=== PATIENT | female | born 1995 | race Caucasian/White ===

== ENCOUNTER 2019-06-17 16:02 | Inpatient (IN) ==
[2019-06-17] MEDS ORDERED: OXYTOCIN/DEXTROSE 5%-WATER 30 UNITS/500 ML BAG IV ONE ×2 (16:08→19:03)
[2019-06-17] MEDS ORDERED: RINGER'S SOLUTION,LACTATED 1,000 ML IV ONE (16:08)
[2019-06-17 16:24] LABS: Hematocrit 40.1 % (37.0-47.0); Hemoglobin 13.6 gm/dL (12.5-16.0); Mean Corpuscular Hemoglobin 31.6 pg (27-31); Mean Corpuscular Hgb Conc 33.9 g/dl (32-36); Mean Platelet Volume 9.4 fl (8-12.5); Neutrophil # 8.3 K/mm3 (1.3-6.0); Neutrophil % 67.3 % (42-75.0); Platelet Count 295 K/mm3 (150-450); Red Blood Count 4.31 M/mm3 (4.2-5.4); Red Cell Distribution Width 13.6 % (11.5-14.0); White Blood Count 12.4 K/mm3 (4.0-10.5)
[2019-06-17 16:34] LABS: Albumin * 2.9 gm/dl (3.4-5.0); Anion Gap 12.5 mmol/L (6.8-13.8); BUN/Creatinine Ratio 10.8 (9.0-21.6); Bilirubin, Total 0.2 mg/dL (0.0-1.1); Calcium * 9.4 mg/dL (7.9-10.9); Carbon Dioxide 24.6 mmol/L (24-32.6); Potassium 4.1 mmol/L (3.4-4.6)
[2019-06-17] MEDS: PENICILLIN G POTASSIUM 5 MILLIONUNT in DEXTROSE 5 % IN WATER 100 ML IV ONE ×2 (17:00)
--- NOTE | 2019-06-17 17:34 | HP ---
Chief Complaint - Chief Complaint Date of Service: 06/17/19 Time of Service: 17:20 Chief Complaint: IOL for GHTN History of Present Illness: 23 yo at 39 5/7 weeks presents to L&D from office for induction of labor due to gestational hypertensiion. This complicated by anemia, GHTN, and smoking in early part of . Rh positive Rubella immune GBS positive Medical History (Updated 11/16/18 @ 14:09 by Giovani Bryan DO) Tobacco abuse (Chronic) Blighted ovum Onset Date: ~03/2018 Chlamydia Onset Date: 04/07/18 Tx'd Surgical History: Surgical History (Updated 11/16/18 @ 13:11 by Jaleesa Anthony RN) No pertinent past surgical history Family History: Family History (Updated 11/16/18 @ 13:11 by Jaleesa Anthony RN) Grandmother Colon cancer Maternal Mother Alive and well Father Alive and well Sister Epilepsy Social History: (Last Reviewed 06/17/19 @ 17:26 by Giovani Bryan DO) Social History: adopted: No Marital status: Single household members: family current occupational status: employed current occupation: [employer] Highest education level completed: high school graduate Sexually Active: Yes Service: No Tobacco: Smoking Status: Current every day smoker tobacco type: cigarettes Smoking cigarettes per day: 10.0 Smoking packs per day: 0.5 Years smoked: 6 Smoking pack-years: 3.00 Alcohol: alcohol intake: current alcohol intake frequency: a few times a week details: none since +UPT Substance Use: substance use type: marijuana Dietary Habits: caffeine: Yes caffeine comment: 1-2/day Type: carbonated beverages, coffee daily servings of milk/calcium: 0-1 Exercise: Physical activity type: none frequency: does not exercise Poly/Restorationist: agree to transfusion: Yes Personal Safety: do you feel safe at home: Yes victim of physical abuse: No victim of emotional abuse: No victim of sexual abuse: No Review Of Systems (GEN) - Review of Systems Generalized/Overall Review: Present: No Symptoms Reported EENTM: Present: Other - visual symptoms yesterday - none today. Respiratory: Present: No Symptoms Reported Cardiac: Present: No Symptoms Reported Abdominal: Present: No Symptoms Reported Genitourinary: Present: No Symptoms Reported Musculoskeletal: Present: No Symptoms Reported Neurological: Present: Headache - past couple days, none today. Skin: Present: No Symptoms Reported Endocrine: Present: No Symptoms Reported Allergies/Adverse Reactions: Allergies Allergy/AdvReac Type Severity Reaction Status Date / Time No Known Allergies Allergy Verified 06/17/19 16:31 Home Medications: HOME MEDICATIONS vitamin,calcium,uxaspcvo-ngcm-sxylh acid tablet 1 tab PO DAILY 11/16/18 [Last Taken Unknown] calcium carbonate 200 mg calcium (500 mg) chewable tablet 400 mg PO .PRN tab 06/03/19 [Last Taken Unknown] Exam - Exam Vital Signs: Vital Signs - Last Taken Temp 36.6 C 06/17/19 16:23 Pulse 77 06/17/19 16:23 Resp 18 06/17/19 16:23 BP 141/82 H 06/17/19 16:23 Pulse Ox 100 06/17/19 16:23 Constitutional: Present: Alert, Oriented x3, Cooperative, No distress ENT Exam: Present: hearing grossly normal Neck: Present: trachea midline. Absent: thyromegaly Breasts: Present: Exam deferred Respiratory: Present: lungs clear, no respiratory distress Cardiovascular/Chest: Present: normal peripheral pulses, regular rate, rhythm, no murmur Abdomen: Present: soft, nontender, no rebound tenderness, other - gravid /Rectal: Present: Other - cervix 2/50/-1 Extremity: Present: no pedal edema, no calf tenderness, lower extremity edema Neurologic: Present: alert, normal mood/affect, oriented x 3, other - DTR 2/4 Appearance: Present: appropriate appearance, appropriate insight Eye contact: Present: cooperative, good eye contact Thoughts: Present: normal thought pattern Diagnostic Studies: Abnormal Lab Results 06/17/19 06/17/19 Range/Units 16:20 16:20 WBC 12.4 H (4.0-10.5) K/mm3 MCH 31.6 H (27-31) pg Immature Gran % (Auto) 1.00 H (0.001-0.429) % Immature Gran # (Auto) 0.12 H (0.000-0.0310) K/mm3 Monocytes % 9.5 H (0.0-9) % Neutrophils # 8.3 H (1.3-6.0) K/mm3 Monocytes # 1.2 H (0.0-1.0) k/mm3 Alkaline Phosphatase 229 H (50-170) U/L Albumin 2.9 L (3.4-5.0) gm/dl Laboratory Results WBC 12.4 K/mm3 (4.0-10.5) H 06/17/19 16:20 RBC 4.31 M/mm3 (4.2-5.4) 06/17/19 16:20 Hgb 13.6 gm/dL (12.5-16.0) 06/17/19 16:20 Hct 40.1 % (37.0-47.0) 06/17/19 16:20 MCV 93.0 fl (78-100) 06/17/19 16:20 MCH 31.6 pg (27-31) H 06/17/19 16:20 MCHC 33.9 g/dl (32-36) 06/17/19 16:20 RDW 13.6 % (11.5-14.0) 06/17/19 16:20 Plt Count 295 K/mm3 (150-450) 06/17/19 16:20 MPV 9.4 fl (8-12.5) 06/17/19 16:20 Immature Gran % (Auto) 1.00 % (0.001-0.429) H 06/17/19 16:20 Immature Gran # (Auto) 0.12 K/mm3 (0.000-0.0310) H 06/17/19 16:20 67.3 % (42-75.0) 06/17/19 16:20 20.6 % (20-51) 06/17/19 16:20 9.5 % (0.0-9) H 06/17/19 16:20 1.3 % (0.0-3.0) 06/17/19 16:20 0.3 % (0.0-1.0) 06/17/19 16:20 Nucleated RBC % 0.0 k/mm3 (0-1) 06/17/19 16:20 8.3 K/mm3 (1.3-6.0) H 06/17/19 16:20 2.55 k/mm3 (1.5-3.5) 06/17/19 16:20 1.2 k/mm3 (0.0-1.0) H 06/17/19 16:20 0.2 k/mm3 (0.0-0.7) 06/17/19 16:20 Absolute Basophils 0.0 k/mm3 (0.0-0.1) 06/17/19 16:20 Sodium 135 mmol/L (132-142) 06/17/19 16:20 135 mmol/L (130-142) 06/17/19 16:20 Potassium 4.1 mmol/L (3.4-4.6) 06/17/19 16:20 Chloride 102 mmol/L (97-106) 06/17/19 16:20 Carbon Dioxide 24.6 mmol/L (24-32.6) 06/17/19 16:20 12.5 mmol/L (6.8-13.8) 06/17/19 16:20 BUN 7 mg/dL (3-23) 06/17/19 16:20 0.65 mg/dL (0.4-1.4) 06/17/19 16:20 Est GFR (Non-Af Amer) 120 mL/min (60-130) 06/17/19 16:20 10.8 (9.0-21.6) 06/17/19 16:20 80 mg/dL (70-110) 06/17/19 16:20 Calcium 9.4 mg/dL (7.9-10.9) 06/17/19 16:20 Calcium Adj for Albumin 10.0 mg/dL (8.4-10.2) 06/17/19 16:20 0.2 mg/dL (0.0-1.1) 06/17/19 16:20 AST 23 U/L (0-48) 06/17/19 16:20 ALT 29 U/L (19-67) 06/17/19 16:20 229 U/L (50-170) H 06/17/19 16:20 7.0 gm/dL (6.2-8.2) 06/17/19 16:20 2.9 gm/dl (3.4-5.0) L 06/17/19 16:20 Assessment/Plan - Assessment/Plan (1) Gestational hypertension Assessment: Admit for pitocin induction of labor. Preeclamptic labs/precautions. Epidural PRN. Problem: Acute Qualifiers: Trimester: third trimester Qualified Code(s): O13.3 - Gestational [-induced] hypertension without significant proteinuria, third trimester
[2019-06-17 17:51] LABS: Random Urine Total Protein Less than 6.0 mg/dL (0-12)
[2019-06-17 18:05] LABS: Cocaine Ur Negative (NEGATIVE); Urine Barbiturate Negative (NEGATIVE); Urine Benzodiazepines Negative (NEGATIVE); Urine Opiates Negative (NEGATIVE); Urine PCP Negative (NEGATIVE); Urine THC Negative (NEGATIVE)
--- NOTE | 2019-06-17 19:02 | PN ---
Progess Note - Interim Date: 06/17/19 Time: 18:59 Narrative: 06/17/19 18:59 Patient rating her contractions as mild. Still denies headache, visual changes, or epigastric pain. Blood pressures ranged from normal to slightly elevated. Protein creatinine ratio elevated at 385. Platelets and liver enzymes within normal limits. FHT: 120 baseline, reassuring contractions q 2-4 min Cervix: 2-3/60/-1, AROM-clear Impression: Intrauterine at 39 5/7 weeks induction of labor for gestational hypertension. Since admission labs indicate mild preeclampsia. Plan: Continue with induction of labor. 06/17/19 19:00
[2019-06-17] MEDS: PENICILLIN G POTASSIUM 2.5 MILLIONUNT in DEXTROSE 5 % IN WATER 100 ML IV SCH ×2 (20:58)
[2019-06-18] MEDS: PENICILLIN G POTASSIUM 2.5 MILLIONUNT in DEXTROSE 5 % IN WATER 100 ML IV SCH ×4 (00:52→08:49)
--- NOTE | 2019-06-18 01:40 | PN ---
Progess Note - Interim Date: 06/18/19 Time: 01:33 Narrative: 06/18/19 01:33 Patient rating contractions 7 out of 10 Vital signs stable. Blood pressures running 140s over 80-90s Pitocin was at 2 mu/min. FSE and IUPC placed due to difficulty assessing heart tones and contractions with external monitoring FHT: 2-minute deceleration in the 90s, 115 baseline, moderate variability, good accelerations, early decelerations contractions q 3 min with couplets Cervix: 5/90/+1 Impression: Intrauterine at 39 6/7 weeks, mild preeclampsia Plan: Amnioinfusion bolus of 200 mL of LR started.
[2019-06-18] MEDS ORDERED: NALOXONE HCL 1 MG/1 ML SYRG IV PRN (03:19)
[2019-06-18] MEDS ORDERED: ONDANSETRON HCL/PF 2 MG/ML VIAL IV PRN ×2 (03:19→06:11)
[2019-06-18] MEDS ORDERED: BUPIVACAINE HCL/0.9 % NACL/PF 250 ML EP PRN (03:19)
[2019-06-18] MEDS ORDERED: fentaNYL CITRATE/PF 50 MCG/ML AMPUL IT SCH (03:30)
--- NOTE | 2019-06-18 03:34 | PN ---
Progess Note - Interim Date: 06/18/19 Time: 03:27 Narrative: 06/18/19 03:27 Patient rating contractions 8 out of 10 - desires epidural. Vital signs stable. Pitocin was at 2 mu/min, but turned off due to early decelerations with late component in the 80s lasting approximately 3 minutes. FHT: 115 baseline, moderate variability contractions -couplets every 3 to 4 minutes Cervix: 5/90/+2 Impression: Intrauterine at 39 6/7 weeks induction of labor for mild preeclampsia. Fetus not tolerating labor well. Risk benefits alternatives to section discussed with patient. Plan: We will keep Pitocin off and allow baby to recover. Patient is very tense and vaginal pelvic muscles are very tense making even a vaginal exam very difficult. Hopefully epidural will relax her enough that we can stretch the cervix over the baby's head and deliver vaginally, otherwise we will proceed w ith section.
[2019-06-18] MEDS ORDERED: TERBUTALINE SULFATE 1 MG/ML VIAL ONE (03:41)
--- NOTE | 2019-06-18 03:48 | ANES ---
Anesthesia Pre Procedure Eval Vitals/Labs: Last Vital Signs Temp 36.6 C 06/17/19 16:23 Pulse 77 06/17/19 16:23 Resp 18 06/17/19 16:23 BP 141/82 H 06/17/19 16:23 Pulse Ox 100 06/17/19 16:23 HOME MEDICATIONS vitamin,calcium,hatlptgy-kcgx-sbime acid tablet 1 tab PO DAILY 11/16/18 [Last Taken Unknown] calcium carbonate 200 mg calcium (500 mg) chewable tablet 400 mg PO .PRN tab 06/03/19 [Last Taken Unknown] Allergies/Adverse Reactions: Allergies Allergy/AdvReac Type Severity Reaction Status Date / Time No Known Allergies Allergy Verified 06/17/19 16:31 - Planned Procedure Planned Procedure: INDUCTION OF LABOR FOR GESTATIONAL HYPERTENSION Medication List Reviewed:: Yes Allergies Verified: Yes Medical History (Updated 06/17/19 @ 17:34 by Giovani Bryan DO) Tobacco abuse (Chronic) Blighted ovum Onset Date: ~03/2018 Chlamydia Onset Date: 04/07/18 Tx'd Surgical History (Updated 06/17/19 @ 17:34 by Giovani Bryan DO) No pertinent past surgical history Family History (Updated 11/16/18 @ 13:11 by Jaleesa Anthony RN) Grandmother Colon cancer Maternal Mother Alive and well Father Alive and well Sister Epilepsy - Family Anesthesia History Family History:: no untoward family reactions to anesthesia, no familial bleeding tendencies, no family history of clotting disorders, no family history of premature - Airway/Neck/Teeth Within Normal Limits:: Yes Teeth Condition: intact Neck Exam: full range of motion Mallampatti Score: 3 Thyromental (T-M) distance: > 6 cm Mandibulo Hyoid distance: > 3 cm - Respiratory Smoking Status: Current every day smoker Discussed smoking cessation including day of surgery: Yes Sleep Apnea currently treated: No Sleep Apnea by current assessment: No - Cardiovascular Tolerate Activity: Fair Heart Sounds: S1 & S2, Regular - Anesthesia Assessment and Plan ASA Class: PS, II, E Anesthesia Type Plan: Block - bilateral TAP block possible, Spinal
[2019-06-18] MEDS ORDERED: OXYTOCIN 20 UNITS in RINGER'S SOLUTION,LACTATED 1,000 ML IV ONE (03:50)
[2019-06-18] MEDS ORDERED: ceFAZolin SODIUM/DEXTROSE,ISO 2 GM/50 ML BAG IV ONE (03:50)
--- NOTE | 2019-06-18 04:15 | PN ---
Progess Note - Interim Date: 06/18/19 Time: 04:11 Narrative: 06/18/19 04:11 Pt brought back to OR for emergent c/s due to persistent decelerations to 70- 80s. On OR table patient complained of increased pressure and was noted to be dilated to 9+/+2. Tracing improved enough during transition to OR to get epidural and attempt operative vaginal delivery in OR if patient could get to complete dilation quickly. OR crew here and ready to go.
--- NOTE | 2019-06-18 06:02 | OR ---
Operative Report - Dictated Report Narrative: Indication: 23-year-old 2 para 0 at 39-6/7 weeks admitted for induction of labor due to preeclampsia. Since admission heart rate had occasional mild decelerations which became longer and more severe as labor progressed. section was called for nonreassuring tracing at 0343 when patient was at 5 cm. During transferred to the OR, status improved for a brief time and patient was dilated 8 to 9 cm. Attempt was made to reduce the cervix and allow patient to deliver vaginally but decelerations returned and became more severe. For this reason we proceeded with section. Status: Emergent called at 0343 then put on standby at 4 AM and recalled emergent once again at 0428. Pre Operative Diagnosis: 39-6/7-week intrauterine , preeclampsia, nonreassuring tracing. Post Operative Diagnosis: Same. Procedure Preformed: Primary Low Transverse Section Surgeon: Alexia Bryan DO Chairman Ceo: OR Staff Anesthesia: Epidural,TAP block Estimated Blood Loss: 400 mL Urine Output: 350 mL of clear urine Fluids Given: 1700 mL of crystalloid Drains: Tian to gravity Surgical Complications: None Specimens: Placenta to pathology Findings: Female born at 446 on 06/18/2019 with Apgars 8 9, weighing 2794 g in cephalic presentation. No obvious reason noted for nonreassuring tracing. Normal uterus, tubes, ovaries. Technique: The patient was taken to the operating room and placed in dorsal supine position with a left lateral tilt. After adequate epidural anesthesia, tian catheter insertion,SCDs placed, and 2 g of Ancef given preoperatively, the abdominal cavity was sterilely prepped and draped and entered via a modified Nba-George incision. Two rolled laps were placed in the pericolic gutters on either side of the uterus. A transverse incision was made in the lower uterine segment and extended laterally and upwardly with digital traction. Clear fluid was noted upon amniotomy. Difficulty was encountered in delivering the head through the hysterotomy. Therefore Kiwi pump pump vacuum was placed to the vertex and the head was delivered easily with one pull of the vacuum pump to the green zone. The vacuum was removed ,the cord was clamped and cut, and infant was handed off to awaiting oil winterizer. Total vacuum application time was less than 20 seconds. The placenta was allowed to deliver spontaneously. Cord gases were obtained while waiting for the placenta to deliver. The uterus was cleared of clot and debris. Uterine incision was closed with 0 Vicryl using a running stitch. A second imbricating layer was placed. Excellent hemostasis was noted. Rolled laps were removed from the abdominal cavitiy. The peritoneum was closed with a running 3-0 Monocryl. The same suture was used to approximate the rectus and pyramidalis muscles. The fascia was closed with a running 0 Vicryl. The subcutaneous layer was closed with a running 3-0 Monocryl. The same suture was used to approximate the subdermal layer. The skin was closed wi th a running 4-0 Monocryl and Dermabond. Sponge, lap, needle, and instrument count were correct x 2. Disposition: The patient was transferred to post anesthesia care unit in good condition History for MU History for MU Definition: * The number of deliveries resulting in a live the patient experienced prior to current hospitalization * The previous delivery of live twins or any live multiple gestation is considered one live event. *If primagravida or nulliparous is documented select zero for the number of previous live births. Live Events: Live Events: 0
--- NOTE | 2019-06-18 06:10 | ANES ---
Post Anesthesia Discharge - Transfer of Care Transfer of Care handoff given to nurse: Yes - Discharge from PACU Discharge from PACU when meets criteria: Yes - Comfortable in PACU
[2019-06-18] MEDS ORDERED: BISACODYL 10 MG SUPP.RECT RC PRN (06:11)
[2019-06-18] MEDS ORDERED: GLYCERIN/WITCH HAZEL LEAF 40 APPL BOX TP PRN (06:11)
[2019-06-18] MEDS ORDERED: SENNOSIDES 8.6 MG TABLET PO PRN (06:11)
[2019-06-18] MEDS ORDERED: IBUPROFEN 800 MG TABLET PO PRN (06:11)
[2019-06-18] MEDS ORDERED: SIMETHICONE 80 MG TAB.CHEW PO PRN (06:11)
--- NOTE | 2019-06-18 06:11 | ANES ---
Anesthesia Procedure Note Procedure Note: ANESTHESIA PROCEDURE NOTE Date of Procedure: [06/18/2019 Time of procedure: 6 AM. Performed by: ALEKSANDER Chopra CRNA, MSN School Physical Therapist: Laura Gustafson RN. Preprocedure diagnosis: Post section pain. Post procedure diagnosis: Same. Procedure: Bilateral TAP block Indications: Post section pain relief. Findings: See below. Details of the procedure: The patient was brought to PACU and placed in the supine position. The patient was prepped with chlorhexidine and using ultrasound guidance the 3 abdominal muscular planes were identified and lidocaine 1% was infiltrated to the skin of the intended injection site. Under ultrasound guidance the the internal oblique and transverse this abdominis muscle layers were approached with visualization of a 4 inch block needle until the tip of the needle rested in the plane between the muscles. 25 mL bupivacaine 0.25% with 1-200,000 epinephrine was injected and the procedure was repeated on the other side. Please see radiology/ultrasound report for details and images of the procedure. EBL: 0 Fluids: N/A. Specimen: N/A. Post procedure condition: The patient tolerated the procedure well. No complications were noted. Thank you for this consultation. Bi Cid CRNA, ARNP, MSN
--- NOTE | 2019-06-18 06:14 | ANES ---
Post Anesthesia Assessment - Vital Signs Vitals: Last Vital Signs Temp 37 C 06/18/19 06:10 Pulse 126 H 06/18/19 06:10 Resp 16 06/18/19 06:10 BP 153/62 H 06/18/19 06:10 Pulse Ox 100 06/18/19 06:10 Airway Patency: Normal - Mental Status Level Of Consciousness: Awake, Alert, Appropriate - Pain Level Pain Score: 0 - N/V Assessment Nausea/Vomiting Presence: None Dehydration:: No
[2019-06-18] MEDS ORDERED: CALCIUM CARBONATE 500 MG TAB.CHEW PO SCH (06:15)
[2019-06-18] MEDS ORDERED: RINGER'S SOLUTION,LACTATED 1,000 ML IV PRN (06:22)
[2019-06-18] MEDS: IBUPROFEN 800 MG TABLET PO PRN ×3 (08:18→21:06)
[2019-06-18] MEDS: oxyCODONE HCL/ACETAMINOPHEN 1 TAB TABLET PO PRN ×4 (08:18→19:48)
[2019-06-18] MEDS: PENICILLIN G POTASSIUM 5 MILLIONUNT in DEXTROSE 5 % IN WATER 100 ML IV ONE ×2 (08:49)
[2019-06-18] MEDS: DOCUSATE SODIUM 100 MG CAPSULE PO SCH ×2 (11:07→21:06)
[2019-06-18] MEDS: PRENATAL VITS96/IRON FUM/FOLIC 1 TAB TABLET PO SCH (11:07)
[2019-06-18] MEDS: ENOXAPARIN SODIUM 40 MG/0.4 ML SYRG SC SCH (14:52)
[2019-06-19] MEDS: oxyCODONE HCL/ACETAMINOPHEN 1 TAB TABLET PO PRN ×6 (00:24→23:09)
[2019-06-19] MEDS: DOCUSATE SODIUM 100 MG CAPSULE PO SCH ×3 (07:24→19:59)
[2019-06-19] MEDS: PRENATAL VITS96/IRON FUM/FOLIC 1 TAB TABLET PO SCH ×2 (07:24→09:02)
--- NOTE | 2019-06-19 09:48 | PN ---
Subjective - Date and Time Seen Date: 06/19/19 Time: 09:45 Objective - Vitals Vitals: Last Vital Signs Temp 36.4 C 06/19/19 06:54 Pulse 75 06/19/19 06:54 Resp 16 06/19/19 06:54 BP 140/80 H 06/19/19 06:54 Pulse Ox 100 06/19/19 00:09 Patient denies complaints. Tolerating regular diet. Ambulating without difficulty. Pain well controlled. Lochia wnl. Abdomen - soft, appropriately tender Incision -clean, dry, intact uterus - firm, at umbilicus -1 no calf tenderness Impression: Post op day #1 s/p primary section. Preeclampsia-stable. Baby transferred to [facility] for arrhythmias (bradycardia) and cardiac effects. Plan: Continue routine post-operative/ care. Continue preeclampsia precautions. Will reevaluate tomorrow morning for possible early discharge if stable. Cauti Physician Documentation - Urinary Catheter Management Urethral ([place]) Date of Insertion: 06/18/19 Time of Insertion: 04:30 Assessment/Plan - Problems/Diagnosis (1) Gestational hypertension Problem: Acute Qualifiers: Trimester: third trimester Qualified Code(s): O13.3 - Gestational [-induced] hypertension without significant proteinuria, third trimester
[2019-06-19] MEDS: IBUPROFEN 800 MG TABLET PO PRN ×2 (13:51→19:59)
[2019-06-19] MEDS: ENOXAPARIN SODIUM 40 MG/0.4 ML SYRG SC SCH (13:52)
[2019-06-20] MEDS: IBUPROFEN 800 MG TABLET PO PRN (02:18)
[2019-06-20] MEDS: oxyCODONE HCL/ACETAMINOPHEN 1 TAB TABLET PO PRN (02:18)
--- NOTE | 2019-06-20 07:28 | PN ---
Subjective - Date and Time Seen Date: 06/20/19 Time: 07:26 Objective - Vitals Vitals: Last Vital Signs Temp 36.3 C 06/20/19 06:44 Pulse 75 06/20/19 06:44 Resp 16 06/20/19 06:44 BP 134/83 06/20/19 06:44 Pulse Ox 100 06/20/19 06:44 Patient denies complaints. Ambulating well. Tolerating regular diet. Pain well controlled. Lochia wnl. Abdomen - soft, appropriately tender Incision -clean, dry, intact uterus - firm, at umbilicus -2 No calf tenderness, DTR-3/4, no clonus Impression: Post op day #2 s/p primary section. Preeclampsia- resolving. Plan: Early discharge so mother can be with baby at [facility]. Preeclampsia precautions. Blood pressure check in 3 to 4 days. Postop appointment in 2 weeks. Cauti Physician Documentation - Urinary Catheter Management Urethral ([place]) Date of Insertion: 06/18/19 Time of Insertion: 04:30 Assessment/Plan - Problems/Diagnosis (1) Gestational hypertension Problem: Acute Qualifiers: Trimester: third trimester Qualified Code(s): O13.3 - Gestational [-induced] hypertension without significant proteinuria, third trimester
[2019-06-20 07:37] VITALS: BP 139/79
[2019-06-20] MEDS: PRENATAL VITS96/IRON FUM/FOLIC 1 TAB TABLET PO SCH (08:24)
[2019-06-20] MEDS: DOCUSATE SODIUM 100 MG CAPSULE PO SCH (08:24)
== END 2019-06-20 09:40 | disposition home or self-care (01) | DRG 788 ==
LOC: OB 16:02
PROVIDERS: ADMIT Obstetrics & Gynecology; ATTEND Obstetrics & Gynecology
CPT/HCPCS: 36415; 59025; 80053; 80307; 82570; 84155; 84156; 85025; 88307